=== PATIENT | female | born 1960 | race African-American/Black ===

== ENCOUNTER → 2019-06-02 | Outpatient (CLI) | payer OTHER ==
[~2019-06-02] MED LIST: BARIUM SULFATE 60% 355 ML SUSP PO ONE; BARIUM SULFATE 98% 135 ML SUSP PO ONE; SIMETHICONE/SOD BICARB/CITRIC ACID PACKET. PO ONE
--- NOTE | 2019-06-02 10:33 | RAD ---
UPPER GI STUDY 06/02/2019 Reason for study: Dysphagia for 2 years, worse for 4 months.. Comparison studies: None. Technique: A preliminary superintendent radiograph of the abdomen was first obtained. Then utilizing air contrast technique with both single contrast and double contrast barium preparations, evaluation of the distal esophagus, stomach, and duodenum was performed in the upright, supine, and prone positions. Fluoroscopy time: 4.1 minutes Number of images: 26 Findings: The preliminary superintendent film revealed a normal bowel gas pattern. Barium swallow was performed without difficulty. There is dilatation of the thoracic esophagus with beaking at the gastroesophageal junction suggestive of achalasia. Multiple contrast boluses are necessary for emptying of the esophagus. There is retained contrast within the thoracic esophagus which refluxes to the upper thoracic esophagus when placed in prone position. No mucosal abnormalities. Stomach was within normal limits for size, shape, and position within the abdominal cavity. No mass or ulcer crater within the stomach, with normal gastric folds. No hiatal hernia. Duodenal bulb and sweep were unremarkable. IMPRESSION: 1. Findings are most suggestive of achalasia. Correlate with manometry findings. 2. Retained contrast within the distal thoracic esophagus refluxes to the upper thoracic esophagus when placed in prone position. Electronically signed by: Piper Fang MD (06/02/2019 10:30 AM) [id number]
== END | disposition home or self-care (01) ==
LOC: DXRAD 07:55
PROVIDERS: ATTEND Internal Medicine Gastroenterology
DX: K21.9 Gastro-esophageal reflux disease without esophagitis (principal); R13.10 Dysphagia, unspecified
CPT/HCPCS: 74240